=== PATIENT | female | born 2000 | race African-American/Black ===

== ENCOUNTER 2023-01-17 14:50 | Emergency (ER) | payer MEDICAID ==
[~2023-01-17] VITALS: Ht 162.6 cm; Wt 65.8 kg
[2023-01-17 14:53] VITALS: BP_SYST 116
--- NOTE | 2023-01-17 15:00 | NUR ---
Pt brought by self, A&Ox4, pt presents to ER with diffuse abdominal pain /bloody discharge, pt gave , afebrile, denies N/V, skin pink and warm, cap refill <3.
--- NOTE | 2023-01-17 15:15 | NUR ---
Report given to Amanda ISRAEL
--- NOTE | 2023-01-17 15:18 | NUR ---
urine sent to lab HCG negative
--- NOTE | 2023-01-17 16:58 | NUR ---
Patient to [facility] for evaluation. Side rails up. Report given to ANGELITA COLINDRES
[2023-01-17] MEDS ORDERED: NACL 0.9% 1,000 ML IV ONE (17:15)
[2023-01-17] MEDS ORDERED: metroNIDAZOLE 500 mg/NS 100 ML IV ONE (17:15)
--- NOTE | 2023-01-17 17:25 | NUR ---
ER at bedside examining patient.
--- NOTE | 2023-01-17 17:28 | NUR ---
# 20 gauge angiocath placed to RIGHT ANTECUBITAL . Use of asceptic technique. Opsite placed over site. Blood return noted. Blood for lab drawn from site. Flushed with 10 cc of normal saline. No evidence of infiltration noted. Patient tolerated well.
[2023-01-17 17:57] LABS: BASOPHILS # (AUTO) 0.1 K/uL (0.0-0.2); BASOPHILS % (AUTO) 0.5 % (0.0-2.0); EOSINOPHILS % (AUTO) 0.3 % (0.0-4.0); HEMATOCRIT 35.3 % (36-48); HEMOGLOBIN 11.7 g/dL (12.0-16.0); LYMPHOCYTES # (AUTO) 1.1 K/uL (1.0-5.5); LYMPHOCYTES % (AUTO) 10.2 % (20.5-51.5); MEAN CORPUSCULAR HEMOGLOBIN 29 pg (27-31); MEAN CORPUSCULAR HGB CONC 33 % (32-36); MEAN CORPUSCULAR VOLUME 87 fL (79.0-98.0); MONOCYTES # (AUTO) 0.9 K/uL (0.0-1.0); MONOCYTES % (AUTO) 8.5 % (1.7-9.3); NEUTROPHILS # (AUTO) 8.3 K/uL (1.8-7.7); NEUTROPHILS % (AUTO) 80.5 % (40.0-70.0); PLATELET COUNT (AUTO) 326 K/uL (130-430); RED BLOOD CELL COUNT(AUTO) 4.08 MIL/uL (4.2-6.2); RED CELL DISTRIBUTION WIDTH 15.2 % (9.0-15.0); WHITE BLOOD COUNT (AUTO) 10.4 K/uL (4.8-10.8)
[2023-01-17] MEDS ORDERED: ACET-2634 PO (18:01)
[2023-01-17] MEDS ORDERED: METR-154 PO (18:01)
--- NOTE | 2023-01-17 18:02 | NUR ---
MOVED TO BED 2
[2023-01-17 18:14] LABS: ALBUMIN 3.3 g/dL (3.4-4.8); CALCIUM 9.4 mg/dL (8.4-11.0); CREATININE 0.87 mg/dL (0.55-1.30); TOTAL BILIRUBIN 0.3 mg/dL (0.0-1.0)
--- NOTE | 2023-01-17 18:27 | NUR ---
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
[2023-01-17 19:11] LABS: BILIRUBIN,URINE 1+ (NEGATIVE); BLOOD, URINE 3+ (NEGATIVE); CLARITY/URINE SL CLOUDY (CLEAR); GLUCOSE,URINE NEGATIVE (NEGATIVE); KETONES,URINE 1+ (NEGATIVE); LEUKOCYTE ESTERASE ,URINE 1+ (NEGATIVE); NITRITE, URINE NEGATIVE (NEGATIVE); PROTEIN URINE 1+ (NEGATIVE)
[2023-01-17 19:25] LABS: COLOR,URINE AMBER (YELLOW)
[2023-01-17 19:27] LABS: BACTERIA,URINE FEW /HPF (None Seen); RBC,URINE 80-100 /HPF (0-3)
[2023-01-17 19:28] LABS: MUCUS,URINE None Seen /LPF (None Seen)
[2023-01-17] MEDS ORDERED: CEPH-548 PO (19:37)
--- NOTE | 2023-01-17 19:50 | NUR ---
Patient given written and verbal discharge instructions and verbalizes understanding. ER MD discussed with patient the results and treatment provided. Patient in stable condition. ID arm band removed. Rx of cephalexin, acetaminophen and metronidazole given. Patient educated on pain management and to follow up with PMD. Pain Scale . Opportunity for questions provided and answered. Medication side effect fact sheet provided.
[2023-01-17 19:53] VITALS: BP_SYST 121
== END 2023-01-17 19:52 | disposition home or self-care (01) ==
LOC: SED 14:50
DX: N39.0 Urinary tract infection, site not specified (principal); R10.2 Pelvic and perineal pain; N71.9 Inflammatory disease of uterus, unspecified; R10.30 Lower abdominal pain, unspecified; R10.10 Upper abdominal pain, unspecified; Z79.899 Other long term (current) drug therapy
CPT/HCPCS: 99285; 96365; 76856; 80053; 81000; 83690; 85025; 87040; 87086; 87186; 87210; 36415; 81025; 83605; J3490